=== PATIENT | female | born 1930 | race Caucasian/White ===

== ENCOUNTER → 2016-05-27 | Outpatient (CLI) | payer MEDICARE, MEDICAID ==
[~2016-05-27] MED LIST: AGGRENOX CAPSUL1 CAP PO; AGGRENOX ER 251 CER PO; AMARYL 2MG T2 MG/TAB PO; AMOXICILLIN 50500 MG PO; ANTIVERT 25MG25 MG PO; ASPIRIN 32325 MG/TAB PO; ASPIRIN 81M81 MG/TA2 PO; ATARAX 25MG25 MG/TAB PO; CARDIZEM CD360 MG PO; CARDIZEM120 MG PO; COLACE 100100 MG/CAP PO; COMPAZINE 5MG TA5 MG PO; CORDARONE200 MG/TAB PO; DUO-KAPS1 CAP PO; ELIQUIS 5MG PO; IRON FERROUS S325 MG PO; LOVAZA1 GM PO; MS CONTIN 115 MG/TAB PO; MULTAQ400 MG PO; MULTI VITAMINS1 TAB PO; NEURONTIN100 MG/CAP PO; NEURONTIN300 MG/CAP PO; NITROSTAT0.4 MG/TAB SL; NORCO 325 MG-51 TAB PO; OMNICEF 300MG300 MG PO; PLAVIX 75MG TAB75 MG PO; PREVACID 30MG30 MG PO; PRIL40 PO; PRILOSEC 20MG20 MG PO; PYRIDIUM 100MG100 MG PO; TAZTIA240 PO; TIAZAC180 MG PO; TIAZAC240 MG PO; TOPROL XL 25MG25 MG PO; TYLENOL 325MG325 MG PO; ZOCOR 20MG20 MG PO; [UNRECOGNIZED DRUG - OTHER]
== END ==
LOC: COL.RAD 09:07
PROVIDERS: Internal Medicine Interventional Cardiology
DX: I70.0 Atherosclerosis of aorta (principal); I70.202 Unspecified atherosclerosis of native arteries of extremities, left leg
CPT/HCPCS: Q9967

== ENCOUNTER 2016-09-12 09:25 | Emergency (ER) | payer MEDICARE, MEDICAID ==
[~2016-09-12] VITALS: Ht 152.4 cm; Wt 66.4 kg
[2016-09-12 09:30] VITALS: TEMP 98.4
[2016-09-12 10:00] LABS: BASO % 0.1 % (0.0-2.0); GRAN # 7.4 (1.4-6.5); GRAN % 76.7 % (42.2-75.2); HEMATOCRIT 40.1 % (37.0-47.0); HEMOGLOBIN 12.2 g/dl (12.5-16.0); LYMPH # 1.5 (1.2-3.4); LYMPH % 15.6 % (20.0-51.0); MEAN CELL VOLUME 77 fl (80.0-100.0); MEAN CORPUSCULAR HEMOGLOBIN 23 pg (27.0-31.0); MEAN CORPUSCULAR HGB CONC 30 g/dl (33.0-37.0); MEAN PLATELET VOLUME 9.6 fl (7.4-10.4); MONO # 0.7 (0.1-0.6); MONO % 6.9 % (1.7-9.3); PLATELET COUNT 263 K/mm3 (130-400); RED BLOOD COUNT 5.22 M/mm3 (4.10-5.30); REDCELL DISTRIBUTION WIDTH-CV 19.9 % (11.5-14.5); WHITE BLOOD COUNT 9.6 K/mm3 (4.8-10.8)
[2016-09-12 10:05] LABS: INR 1.7 (0.8-3.0); PROTHROMBIN TIME 18.8 SECONDS (9.7-12.8)
[2016-09-12 10:08] LABS: PARTIAL THROMBOPLASTIN TIME 36.5 SECONDS (26.0-37.0)
[2016-09-12 10:11] LABS: ADJUSTED CALCIUM 9.5 mg/dL (8.4-10.2); ALANINE AMINOTRANSFERASE 41 U/L (9-52); ALBUMIN 4.3 gm/dL (3.5-5.0); ALKALINE PHOSPHATASE 106 U/L (50-136); ANION GAP 19 mmol/L (7-16); BILIRUBIN,TOTAL 0.7 mg/dL (0.0-1.0); BLOOD UREA NITROGEN 17 mg/dL (7-17); CALCIUM 9.7 mg/dL (8.4-10.2); CARBON DIOXIDE 22 mmol/L (22-30); CHLORIDE 98 mmol/L (98-107); CREATININE, serum 1.22 mg/dL (0.52-1.25); GLUCOSE 201 mg/dL (74-106); POTASSIUM 4.7 mmol/L (3.4-5.0); SODIUM 138 mmol/L (137-145); TOTAL PROTEIN 8.7 gm/dL (6.4-8.2)
[2016-09-12 10:23] LABS: B-TYPE NATRIURETIC PEPTIDE 322 pg/mL (0-450)
[2016-09-12 10:33] LABS: TROPONIN-I < 0.012 ng/mL (0.000-0.034)
[2016-09-12 12:40] VITALS: BP 156/71; PULSE 60
== END 2016-09-12 12:40 | disposition home or self-care (01) ==
LOC: COL.ER 09:25
PROVIDERS: Emergency Medicine
DX: R07.9 Chest pain, unspecified (principal); E11.9 Type 2 diabetes mellitus without complications; I48.91 Unspecified atrial fibrillation; Z79.01 Long term (current) use of anticoagulants; Z86.73 Personal history of transient ischemic attack (TIA), and cerebral infarction without residual deficits; Z85.118 Personal history of other malignant neoplasm of bronchus and lung; Z85.038 Personal history of other malignant neoplasm of large intestine; Z95.0 Presence of cardiac pacemaker
CPT/HCPCS: J2270; J7040; Q9967

== ENCOUNTER → 2016-09-22 | Outpatient (CLI) | payer MEDICARE, MEDICAID ==
[2016-09-22 20:16] LABS: THYROID STIMULATING HORMONE 4.93 uIU/mL (0.465-4.680)
== END ==
LOC: ZCOL.LAB 14:55
PROVIDERS: Internal Medicine
DX: Z01.89 Encounter for other specified special examinations (principal)

== ENCOUNTER → 2017-03-02 | Outpatient (REF) | LOC: ZLAB.WCH 10:34 | DX: Z01.89 Encounter for other specified special examinations (principal) ==

== ENCOUNTER 2017-05-10 14:45 | Inpatient (IN) | payer MEDICARE, MEDICAID ==
[~2017-05-10] VITALS: Ht 165.1 cm; Wt 60.4 kg
[~2017-05-10 14:45] MED LIST changes: +CARDIZEM CD 12120 MG PO; +LOPRESSOR 225 MG/TAB PO; +PRESERVISION1 SGL PO; +ROXICODONE 55 MG/TAB PO; -TOPROL XL 25MG25 MG PO
[2017-05-10 16:00] LABS: BASO % 0.2 % (0.0-2.0); EOS % 0.2 % (0-4.0); GRAN % 80.5 % (42.2-75.2); HEMATOCRIT 36.2 % (37.0-47.0); HEMOGLOBIN 10.9 g/dl (12.5-16.0); LYMPH # 1.5 (1.2-3.4); LYMPH % 11.9 % (20.0-51.0); MEAN CELL VOLUME 79 fl (80.0-100.0); MEAN CORPUSCULAR HEMOGLOBIN 24 pg (27.0-31.0); MEAN CORPUSCULAR HGB CONC 30 g/dl (33.0-37.0); MEAN PLATELET VOLUME 9.8 fl (7.4-10.4); MONO # 0.8 (0.1-0.6); MONO % 6.5 % (1.7-9.3); PLATELET COUNT 341 K/mm3 (130-400); REDCELL DISTRIBUTION WIDTH-CV 18.6 % (11.5-14.5)
[2017-05-10 16:04] LABS: INR 1.7 (0.8-3.0); PROTHROMBIN TIME 19.7 SECONDS (9.7-12.8)
[2017-05-10 16:07] LABS: PARTIAL THROMBOPLASTIN TIME 31.1 SECONDS (26.0-37.0)
[2017-05-10 16:14] LABS: ALANINE AMINOTRANSFERASE 36 U/L (9-52); ALBUMIN 3.5 gm/dL (3.5-5.0); ALKALINE PHOSPHATASE 98 U/L (50-136); ANION GAP 12 mmol/L (7-16); AST,SGOT 28 U/L (15-37); BILIRUBIN,TOTAL 0.3 mg/dL (0.0-1.0); BLOOD UREA NITROGEN 18 mg/dL (7-17); CALCIUM 9.2 mg/dL (8.4-10.2); CARBON DIOXIDE 25 mmol/L (22-30); CHLORIDE 101 mmol/L (98-107); CREATININE, serum 1.17 mg/dL (0.52-1.25); GLUCOSE 100 mg/dL (74-106); POTASSIUM 3.9 mmol/L (3.4-5.0); SODIUM 138 mmol/L (137-145); TOTAL PROTEIN 7.3 gm/dL (6.4-8.2)
[2017-05-10 16:33] LABS: TROPONIN-I < 0.012 ng/mL (0.000-0.034)
[2017-05-10] MEDS ORDERED: OPDIVO10 MG/ML IV ×2 (18:01→21:17)
[2017-05-10] MEDS ORDERED: TOPROL XL 25MG25 MG PO (18:03)
[2017-05-10] MEDS ORDERED: ELIQUIS 5MG PO (18:03)
[2017-05-10] MEDS ORDERED: LOPRESSOR 225 MG/TAB PO (18:04)
[2017-05-10] MEDS ORDERED: CARDIZEM120 MG PO (18:11)
[2017-05-10 22:20] VITALS: BP 102/32; PULSE 59; TEMP 101.3
[2017-05-10 23:27] LABS: INFLUENZA A NEGATIVE; INFLUENZA B NEGATIVE
[2017-05-10 23:51] VITALS: BP 94/34; PULSE 64; TEMP 97.9
[2017-05-11 03:28] VITALS: BP 103/41; PULSE 66; TEMP 99
[2017-05-11 03:42] LABS: COLLECTION METHOD CLEAN CATCH
[2017-05-11 03:49] LABS: MUCOUS Present /lpf; PH 5 (5-8); URINE APPEARANCE Hazy; URINE BACTERIA Rare /hpf; URINE BILIRUBIN Negative (NEGATIVE); URINE BLOOD Negative (NEGATIVE); URINE COLOR Yellow; URINE GLUCOSE Negative (NEGATIVE); URINE KETONE Negative (NEGATIVE); URINE LEUKOCYTE ESTERASE Negative (NEGATIVE); URINE NITRATE Positive (NEGATIVE); URINE PROTEIN(semi-quant) 1+ (NEGATIVE); URINE RBC 0-2 /hpf; URINE UROBILINOGEN Negative (NEGATIVE)
[2017-05-11 05:43] LABS: ARTERIAL BLD GAS O2 SATURATION 95.5 % (92-100); ARTERIAL BLD GAS TCO2 CT 26.9; ARTERIAL BLOOD GAS BASE EXCESS 1.6 (-2-2); ARTERIAL BLOOD GAS HCO3 25.7 meq/L (22-26); ARTERIAL BLOOD GAS PCO2 38.7 mmHg (35-45); ARTERIAL BLOOD GAS PO2 79.3 mmHg (80-100); ARTERIAL BLOOD GAS pH 7.44 (7.35-7.45)
[2017-05-11 07:19] LABS: ANION GAP 9 mmol/L (7-16); BLOOD UREA NITROGEN 16 mg/dL (7-17); CARBON DIOXIDE 25 mmol/L (22-30); CHLORIDE 102 mmol/L (98-107); CHOLESTEROL 125 mg/dL (120-200); CHOLESTEROL RISK RATIO 4.3; GLUCOSE 106 mg/dL (74-106); HDL CHOLESTEROL 29 mg/dL; LDL CHOLESTEROL 68 mg/dL; POTASSIUM 4.1 mmol/L (3.4-5.0); SODIUM 136 mmol/L (137-145); TRIGLYCERIDE 139 mg/dL
[2017-05-11 07:20] LABS: BASO % 0.2 % (0.0-2.0); EOS % 0.2 % (0-4.0); GRAN # 11.7 (1.4-6.5); GRAN % 83.4 % (42.2-75.2); LYMPH # 1.2 (1.2-3.4); LYMPH % 8.7 % (20.0-51.0); MEAN CELL VOLUME 79 fl (80.0-100.0); MEAN CORPUSCULAR HGB CONC 30 g/dl (33.0-37.0); MEAN PLATELET VOLUME 9.6 fl (7.4-10.4); PLATELET COUNT 323 K/mm3 (130-400); RED BLOOD COUNT 4.18 M/mm3 (4.10-5.30); REDCELL DISTRIBUTION WIDTH-CV 18.6 % (11.5-14.5)
[2017-05-11 07:25] LABS: HEMATOCRIT 33.1 % (37.0-47.0); HEMOGLOBIN 9.9 g/dl (12.5-16.0); MEAN CORPUSCULAR HEMOGLOBIN 24 pg (27.0-31.0)
[2017-05-11 07:38] LABS: TROPONIN-I 6 HR POST INITIAL < 0.012 ng/mL (0.000-0.034)
[2017-05-11 07:42] VITALS: BP 123/47; PULSE 74; TEMP 98.4
[2017-05-11 11:53] VITALS: BP 100/47; PULSE 62; TEMP 97.7
[2017-05-11 15:46] VITALS: BP 123/38; PULSE 61; TEMP 98
[2017-05-11 19:39] VITALS: BP 129/37; PULSE 66; TEMP 99.6
[2017-05-11 23:01] LABS: COLLECTION METHOD CATHETER
[2017-05-11 23:06] LABS: MUCOUS Present /lpf; PH 6 (5-8); URINE APPEARANCE Hazy; URINE BACTERIA None Seen /hpf; URINE BILIRUBIN Negative (NEGATIVE); URINE BLOOD Negative (NEGATIVE); URINE COLOR Yellow; URINE GLUCOSE Negative (NEGATIVE); URINE KETONE Negative (NEGATIVE); URINE LEUKOCYTE ESTERASE Trace (NEGATIVE); URINE NITRATE Positive (NEGATIVE); URINE PROTEIN(semi-quant) 1+ (NEGATIVE); URINE RBC 0-2 /hpf; URINE UROBILINOGEN Negative (NEGATIVE)
[2017-05-12 02:36] VITALS: BP 122/49; PULSE 66; TEMP 99.3
[2017-05-12 07:46] VITALS: BP 123/57; PULSE 65; TEMP 98
[2017-05-12 08:10] LABS: CALCIUM 9.1 mg/dL (8.4-10.2); CREATININE, serum 1.14 mg/dL (0.52-1.25); POTASSIUM 4.1 mmol/L (3.4-5.0)
[2017-05-12 08:26] LABS: BASO % 0.1 % (0.0-2.0); EOS % 0.2 % (0-4.0); GRAN # 8.9 (1.4-6.5); GRAN % 81.3 % (42.2-75.2); LYMPH # 1.1 (1.2-3.4); MEAN CELL VOLUME 78 fl (80.0-100.0); MEAN CORPUSCULAR HGB CONC 30 g/dl (33.0-37.0); MEAN PLATELET VOLUME 9.7 fl (7.4-10.4); MONO # 0.9 (0.1-0.6); MONO % 7.9 % (1.7-9.3); PLATELET COUNT 317 K/mm3 (130-400); RED BLOOD COUNT 4.41 M/mm3 (4.10-5.30); REDCELL DISTRIBUTION WIDTH-CV 18.4 % (11.5-14.5)
[2017-05-12 08:33] LABS: HEMATOCRIT 34.5 % (37.0-47.0); HEMOGLOBIN 10.4 g/dl (12.5-16.0); MEAN CORPUSCULAR HEMOGLOBIN 24 pg (27.0-31.0)
[2017-05-12 10:56] LABS: GLUCOSE,PLEURAL FLUID 104 mg/dL; TOTAL PROTEIN,PLEURAL FLUID 4.1 gm/dL
[2017-05-12 11:17] LABS: PLEURAL FLUID RBC 2000 /mm3 (0-0); PLEURAL FLUID WBC 667 /mm3
[2017-05-12 12:04] VITALS: BP 95/54; PULSE 99; TEMP 97.8
[2017-05-12] MEDS ORDERED: CEPHALEXIN500 M1 PO (13:54)
[2017-05-12 19:39] LABS: PLEURAL FLUID APPEARANCE CLEAR; PLEURAL FLUID COLOR YELLOW
== END 2017-05-12 17:00 | disposition home or self-care (01) | DRG 180 ==
LOC: COL.ER 14:45 → MEDICAL 19:26 → COL.ER 19:26 → MEDICAL 19:26
PROVIDERS: Emergency Medicine; Internal Medicine Pulmonary Disease; Nurse Practitioner; Physician Assistant
PROC: 0W993ZX Drainage of Right Pleural Cavity, Percutaneous Approach, Diagnostic (ICD-10-PCS; principal; 2017-05-12)
DX: C34.01 Malignant neoplasm of right main bronchus (principal); J96.01 Acute respiratory failure with hypoxia; J91.0 Malignant pleural effusion; N39.0 Urinary tract infection, site not specified; I25.10 Atherosclerotic heart disease of native coronary artery without angina pectoris; J44.9 Chronic obstructive pulmonary disease, unspecified; Z95.0 Presence of cardiac pacemaker; I48.91 Unspecified atrial fibrillation; Z85.520 Personal history of malignant carcinoid tumor of kidney; E11.9 Type 2 diabetes mellitus without complications; F17.210 Nicotine dependence, cigarettes, uncomplicated; Z85.030 Personal history of malignant carcinoid tumor of large intestine
CPT/HCPCS: 99223-AI; 99232-AI; 99239; J2270; J2765; J7050; Q9967

== ENCOUNTER 2017-06-04 14:03 | Inpatient (IN) | payer MEDICARE, MEDICAID ==
[~2017-06-04] VITALS: Ht 152.4 cm; Wt 61.2 kg
[~2017-06-04 14:03] MED LIST changes: +CEPHALEXIN500 M1 PO; +OPDIVO10 MG/ML IV; +TOPROL XL 25MG25 MG PO
[2017-06-04 16:18] LABS: BASO % 0.2 % (0.0-2.0); EOS % 0.2 % (0-4.0); GRAN # 8.8 (1.4-6.5); GRAN % 70.2 % (42.2-75.2); LYMPH # 2.6 (1.2-3.4); MEAN CELL VOLUME 77 fl (80.0-100.0); MEAN CORPUSCULAR HGB CONC 30 g/dl (33.0-37.0); MONO % 7.8 % (1.7-9.3); PLATELET COUNT 382 K/mm3 (130-400); RED BLOOD COUNT 4.49 M/mm3 (4.10-5.30); REDCELL DISTRIBUTION WIDTH-CV 17.9 % (11.5-14.5)
[2017-06-04 16:19] LABS: HEMATOCRIT 34.6 % (37.0-47.0); HEMOGLOBIN 10.5 g/dl (12.5-16.0); MEAN CORPUSCULAR HEMOGLOBIN 23 pg (27.0-31.0)
[2017-06-04 16:22] LABS: INR 1.9 (0.8-3.0); PROTHROMBIN TIME 21.8 SECONDS (9.7-12.8)
[2017-06-04 16:25] LABS: PARTIAL THROMBOPLASTIN TIME 31.5 SECONDS (26.0-37.0)
[2017-06-04 16:47] LABS: ALANINE AMINOTRANSFERASE 29 U/L (9-52); ALBUMIN 3.5 gm/dL (3.5-5.0); ALKALINE PHOSPHATASE 99 U/L (50-136); ANION GAP 8 mmol/L (7-16); AST,SGOT 52 U/L (15-37); BILIRUBIN,TOTAL 0.4 mg/dL (0.0-1.0); BLOOD UREA NITROGEN 24 mg/dL (7-17); CALCIUM 9.4 mg/dL (8.4-10.2); CARBON DIOXIDE 27 mmol/L (22-30); CHLORIDE 102 mmol/L (98-107); GLUCOSE 58 mg/dL (74-106); POTASSIUM 4.4 mmol/L (3.4-5.0); SODIUM 136 mmol/L (137-145); TOTAL PROTEIN 7.6 gm/dL (6.4-8.2)
[2017-06-04 16:57] LABS: TROPONIN-I < 0.012 ng/mL (0.000-0.034)
[2017-06-04 22:19] VITALS: BP 113/53; PULSE 59; TEMP 98.5
[2017-06-05 00:17] VITALS: BP 106/47; PULSE 61; TEMP 98.3
[2017-06-05 05:35] VITALS: BP 128/50; PULSE 62; TEMP 98.3
[2017-06-05 07:52] LABS: BASO % 0.1 % (0.0-2.0); EOS % 0.2 % (0-4.0); GRAN % 81.6 % (42.2-75.2); LYMPH # 1.2 (1.2-3.4); LYMPH % 10.6 % (20.0-51.0); MEAN CELL VOLUME 78 fl (80.0-100.0); MEAN CORPUSCULAR HGB CONC 30 g/dl (33.0-37.0); MEAN PLATELET VOLUME 9.1 fl (7.4-10.4); MONO # 0.8 (0.1-0.6); MONO % 6.9 % (1.7-9.3); PLATELET COUNT 340 K/mm3 (130-400); RED BLOOD COUNT 4.33 M/mm3 (4.10-5.30); REDCELL DISTRIBUTION WIDTH-CV 18.2 % (11.5-14.5)
[2017-06-05 07:57] LABS: HEMATOCRIT 33.6 % (37.0-47.0); MEAN CORPUSCULAR HEMOGLOBIN 23 pg (27.0-31.0)
[2017-06-05 08:10] LABS: CALCIUM 9.1 mg/dL (8.4-10.2); CREATININE, serum 1.12 mg/dL (0.52-1.25); POTASSIUM 4.3 mmol/L (3.4-5.0)
[2017-06-05 09:04] VITALS: BP 148/58; PULSE 63; TEMP 98.2
[2017-06-05 13:38] VITALS: BP 135/56; PULSE 62; TEMP 97.8
[2017-06-05 16:00] VITALS: BP 130/68; PULSE 68; TEMP 98.8
[2017-06-05 21:15] VITALS: BP 108/45; PULSE 61; TEMP 98.4
[2017-06-06 00:25] VITALS: BP 134/85; PULSE 88; TEMP 98.1
[2017-06-06 07:55] LABS: BASO % 0.2 % (0.0-2.0); EOS % 0.1 % (0-4.0); GRAN # 7.2 (1.4-6.5); GRAN % 79.3 % (42.2-75.2); LYMPH # 1.2 (1.2-3.4); LYMPH % 13.4 % (20.0-51.0); MEAN CELL VOLUME 78 fl (80.0-100.0); MEAN CORPUSCULAR HGB CONC 30 g/dl (33.0-37.0); MEAN PLATELET VOLUME 9.1 fl (7.4-10.4); MONO # 0.6 (0.1-0.6); MONO % 6.3 % (1.7-9.3); PLATELET COUNT 365 K/mm3 (130-400); RED BLOOD COUNT 4.33 M/mm3 (4.10-5.30)
[2017-06-06 07:56] LABS: INR 1.3 (0.8-3.0); PROTHROMBIN TIME 14.6 SECONDS (9.7-12.8)
[2017-06-06 07:58] LABS: PARTIAL THROMBOPLASTIN TIME 29.1 SECONDS (26.0-37.0)
[2017-06-06 08:02] LABS: CALCIUM 9.2 mg/dL (8.4-10.2); CREATININE, serum 1.09 mg/dL (0.52-1.25); PHOSPHOROUS 3.5 mg/dL (2.5-4.5); POTASSIUM 4.3 mmol/L (3.4-5.0)
[2017-06-06 08:04] LABS: HEMATOCRIT 33.8 % (37.0-47.0); MEAN CORPUSCULAR HEMOGLOBIN 23 pg (27.0-31.0)
[2017-06-06 09:18] VITALS: BP 124/62; PULSE 68; TEMP 98.6
[2017-06-06 12:48] VITALS: BP 118/57; BP 120/64; PULSE 64; PULSE 71; TEMP 98; TEMP 98.6
[2017-06-07] MEDS ORDERED: ELIQUIS 5MG PO (09:03)
== END 2017-06-06 14:20 | disposition home or self-care (01) | DRG 187 ==
LOC: COL.ER 14:03 → MEDICAL 19:31
PROVIDERS: Emergency Medicine; Internal Medicine; Internal Medicine Pulmonary Disease; Nurse Practitioner
DX: J90 Pleural effusion, not elsewhere classified (principal); C34.11 Malignant neoplasm of upper lobe, right bronchus or lung; E87.1 Hypo-osmolality and hyponatremia; Z95.0 Presence of cardiac pacemaker; J44.9 Chronic obstructive pulmonary disease, unspecified; I48.91 Unspecified atrial fibrillation; Z85.520 Personal history of malignant carcinoid tumor of kidney; I25.119 Atherosclerotic heart disease of native coronary artery with unspecified angina pectoris; E11.9 Type 2 diabetes mellitus without complications; Z85.030 Personal history of malignant carcinoid tumor of large intestine; F17.210 Nicotine dependence, cigarettes, uncomplicated; Z79.01 Long term (current) use of anticoagulants
CPT/HCPCS: 99222-AI; 99232-AI; 99239; J7030; J7050; Q9967